=== PATIENT | male | born 1990 ===

== ENCOUNTER 2023-10-26 00:07 | Emergency (ER) | payer OTHER ==
[~2023-10-26] VITALS: Ht 170.2 cm; Wt 64.5 kg
[2023-10-26 01:46] VITALS: BP 134/84; PULSE 61; RESP 16; TEMP 98.6; O2SAT 100
[2023-10-26] MEDS: TETRACAINE HCL 0.5% OPTH(EYE) SOLN 4ML LEFTEYE ONE (02:28)
[2023-10-26] MEDS: FLUORESCEIN SOD OPTH TEST STRIP LEFTEYE ONE (02:28)
[2023-10-26] MEDS ORDERED: GENT0.3S10 EACHEYE (02:54)
[2023-10-26] MEDS: ERYTHROMY OPTH OINT 5mg/gm 1gm or 3.5gm tube OP ONE (02:59)
[2023-10-26] MEDS: TETANUS-DIPTH-ACEL PERTUSSIS 0.5ML SYR Tdap IM ONE (04:05)
== END 2023-10-26 02:57 | disposition home or self-care (01) ==
LOC: ER 00:07
DX: T26.62XA Corrosion of cornea and conjunctival sac, left eye, initial encounter (principal); Y93.E9 Activity, other interior property and clothing maintenance; Y92.69 Other specified industrial and construction area as the place of occurrence of the external cause; Y99.8 Other external cause status
CPT/HCPCS: 90471; 90715